=== PATIENT | male | born 1990 | race Hispanic/Latino ===

== ENCOUNTER 2016-10-30 19:06 | Emergency (ER) | payer OTHER ==
[~2016-10-30 19:06] MED LIST: FLEXERIL10 MG PO; MOTRIN800 MG PO
[2016-10-30 19:12] VITALS: BP 136/82
--- NOTE | 2016-10-30 19:45 | ED EYE COMPLAINT ---
History of Present Illness General Chief Complaint: Eye Problems Stated Complaint: LEFT EYE PAIN Source: patient Exam Limitations: no limitations Vital Signs & Intake/Output Vital Signs & Intake/Output Vital Signs Date Time Temp Pulse Resp B/P B/P Pulse O2 O2 Flow FiO2 Mean Ox Delivery Rate 10/31 1931 98 Room Air 10/31 1911 98.2 58 20 136/82 100 Allergies Coded Allergies: NO KNOWN ALLERGIES (10/30/16) Reconcile Medications Cholecalciferol (Vitamin D3) (Vitamin D) 5,000 UNIT TABLET 1 TAB PO DAILY SUPPLEMENT (Reported) Lansoprazole/Amoxiciln/Clarith (Prevpac Patient Pack) (Unknown Strength) COMBO..PKG (Unknown Dose) PO AD H. PYLORI (Reported) Polytrim (Polytrim Eye Drops) 10,000 UNIT-1 MG/ML DROPS 1 GTT OPH Q6 CORNEAL ABRASION Triage Note: PER PT L EYE PAIN ? METAL IN IT SINCE YESTERDAY, WORK RELATED INJURY. Triage Nurses Notes Reviewed? yes Onset: Gradual Duration: constant Timing: recent history Severity: mild Severity Numbers: 1 No Modifying Factors: none HPI: Patient is 26-year-old male with an unremarkable past medical history who presented to emergency and that yesterday while at work ([place]) Past History Travel History Traveled to [place] past 21 day No Medical History Any Pertinent Medical History? none Neurological: DENIES EENT: DENIES Cardiovascular: DENIES Respiratory: DENIES Gastrointestinal: DENIES Hepatic: DENIES Renal: DENIES Musculoskeletal: DENIES Psychiatric: DENIES Endocrine: DENIES Blood Disorders: DENIES Cancer(s): DENIES Surgical History Surgical History: non-contributory, N Psychosocial History What is your primary language Polish Tobacco Use: Never used Family History Hx Contributory? No ([place]) Review of Systems Review of Systems Constitutional: Reports: no symptoms. Eyes: Reports: see HPI. Ear: Reports: no symptoms. Nose: Reports: no symptoms. Mouth: Reports: no symptoms. Throat: Reports: no symptoms. Respiratory: Reports: no symptoms. Cardiovascular: Reports: no symptoms. GI: Reports: no symptoms. Genitourinary: Reports: no symptoms. Musculoskeletal: Reports: no symptoms. Skin: Reports: no symptoms. Neurological/Psychological: Reports: no symptoms. Hematologic/Endocrine: Reports: no symptoms. Immunologic/Allergic: Reports: no symptoms. All Other Systems: Reviewed and Negative ([place]) Physical Exam General Appearance: well developed/nourished, no apparent distress, alert General Inspection: SEE DIAGRAM Eyelid: normal inspection Conjunctiva/Sclera: injected Cornea: examined w/fluorescein, fluorescein dye uptake EOM: intact Pupil: normal accommodation, normal pupil, PERRL Eye Left 1) Noted scleral injection No foreign body Fluorescein stain showed minimal uptake linear EXCORIATION General Inspection: normal inspection Eyelid: normal inspection Conjunctiva/Sclera: normal inspection Cornea: normal inspection EOM: intact Pupil: normal accommodation, normal pupil, PERRL Physical Exam Head: atraumatic Nose: normal inspection Neck: normal inspection Neurologic/Psych: no motor/sensory deficits Skin: intact, normal color ([place]) Progress Differential Diagnosis: corneal abrasion, corneal foreign body, conjunctivitis, detached retina, glaucoma, globe rupture, retinal art./v. occlusion, FB OF EYE Plan of Care: Current Medications Sig/Martin Start time Last Medication Dose Stop Time Status Admin Tetanus/Diphtheria 0.5 ML ONCE ONE 10/30 1944 CAN Toxoids Adsorbed 10/30 1945 (Decavac) Patient was PERRLA. Visual acuity was unremarkable. I did discuss with patient that there could always be a possibility of retained foreign body to left eye in which she understood and to return to emergency room if symptoms worsen and he will comply. Patient was strongly advised to follow- up with ophthalmology as discussed in discharge instructions. on physical exam there is no signs of foreign body retention left eye ([place]) Departure Departure Disposition: HOME OR SELF CARE Condition: Stable Clinical Impression Primary Impression: Left eye pain Secondary Impressions: Left corneal abrasion Referrals: FELICIA FIERRO,LARS Billy (PCP/Family) Additional Instructions: As discussed begin the prescription for Polytrim as directed to prevent infection. If you know worsening symptoms or developing new concerning symptom return to the emergency room immediately. Follow-up with business division chair Dr. Syed on Tuesday for further evaluation treatment. Departure Forms: Customer Survey Employee Industrial Accident General Discharge Information Prescriptions: Current Visit Scripts Polytrim (Polytrim Eye Drops) 1 GTT OPH Q6 #10 ML ([place]) PA/HEAD CD REACTOR OPERATOR Co-Sign Statement Statement: ED Attending supervision documentation- [] I saw and evaluated the patient. I have also reviewed all the pertinent lab results and diagnostic results. I agree with the findings and the plan of care as documented in the PA's/HEAD CD REACTOR OPERATOR's documentation. [X] I have reviewed the ED Record and agree with the PA's/HEAD CD REACTOR OPERATOR's documentation. [] Additions or exceptions (if any) to the PAs/HEAD CD REACTOR OPERATOR's note and plan are summarized below: [] (ROSI COWAN DO)
[2016-10-30] MEDS ORDERED: PREVPAC PATIEN1 EACH PO (19:59)
[2016-10-30] MEDS ORDERED: VITAMIN D5000 UNIT PO (20:00)
[2016-10-30] MEDS ORDERED: POLYTRIM EYE DR10 ML OPH (20:18)
== END 2016-10-30 20:23 ==
LOC: ERH 19:06
DX: S05.02XA Injury of conjunctiva and corneal abrasion without foreign body, left eye, initial encounter (principal); X58.XXXA Exposure to other specified factors, initial encounter; Y92.9 Unspecified place or not applicable; Y93.9 Activity, unspecified
CPT/HCPCS: 90714